=== PATIENT | female | born 1975 ===

== ENCOUNTER 2019-05-15 07:36 | Inpatient (IN) ==
[2019-05-15] MEDS ORDERED: hydrOXYzine pamoate 25 MG CAPSULE PO PRN (07:55)
[2019-05-15] MEDS ORDERED: Acetaminophen 325 MG TABLET PO PRN (07:55)
[2019-05-15] MEDS ORDERED: MOM Conc 10 ML UD.LIQ PO PRN (07:55)
[2019-05-15] MEDS ORDERED: Mag Hydrox/Al Hydrox/Simeth 30 ML UDC PO PRN (07:55)
[2019-05-15] MEDS ORDERED: *HR* LORazepam 1 MG TABLET PO PRN (07:55)
[2019-05-15] MEDS ORDERED: traZODone 50 MG TABLET PO PRN (07:55)
[2019-05-15] MEDS ORDERED: *HR* LORazepam 2 MG/ML VIAL IM PRN (07:55)
[2019-05-15] MEDS ORDERED: Haloperidol Lactate 5 MG/ML VIAL IM PRN (07:55)
[2019-05-15] MEDS ORDERED: SUMAtriptan succinate 25 MG TABLET PO PRN (09:54)
[2019-05-15] MEDS: FLUoxetine 20 MG CAPSULE PO SCH (11:24)
[2019-05-16] MEDS: FLUoxetine 20 MG CAPSULE PO SCH (08:39)
[2019-05-16 10:04] VITALS: BP 107/71
[2019-05-17] MEDS ORDERED: FLUoxetine 20 MG CAPSULE PO SCH (09:00)
== END 2019-05-16 12:28 | disposition home or self-care (01) | DRG 885 ==
LOC: 1ANU 07:36
PROVIDERS: ADMIT Psychiatry & Neurology Psychiatry; ATTEND Psychiatry & Neurology Psychiatry